=== PATIENT | female | born 1975 | race Caucasian/White ===

== ENCOUNTER → 2022-09-08 11:02 | Outpatient (CLI) | payer BC, SELFPAY ==
--- NOTE | ~2022-09-08 | MM_ITS ---
EXAMINATION: MM screening [facility] BI w [place] HISTORY: Screening mammogram TECHNIQUE: Craniocaudal and mediolateral oblique 3-D tomosynthesis images were obtained and synthetic 2-D images were generated. CAD analysis was submitted and interpreted. COMPARISON: 07/08/2015, 08/19/2009 BREAST PARENCHYMAL COMPOSITION: The breasts are heterogeneously dense, which may obscure small masses . FINDINGS: Scattered benign-appearing calcifications are present. No suspicious mass, calcification, o r architectural distortion are identified in either breast to suggest malignancy. There has been no s uspicious interval change. IMPRESSION: 1. No mammographic evidence of malignancy. 2. Recommend routine screening mammography in one year. BI-RADS Category 2: Benign finding(s). Reviewed, dictated and finalized at location A.
== END ==
PROVIDERS: PCP Physician Assistant; Visit Provider Physician Assistant
DX: Z12.31 Encounter for screening mammogram for malignant neoplasm of breast (principal)
CPT/HCPCS: 77063; 77067

== ENCOUNTER 2024-11-06 07:32 | Outpatient (CLI) | payer BC, SELFPAY ==
--- NOTE | ~2024-11-06 | MM_ITS ---
EXAMINATION: MM screening [facility] w [place] HISTORY: Screening mammogram TECHNIQUE: Craniocaudal and mediolateral oblique 3-D tomosynthesis images were obtained and synthetic 2-D images were generated. CAD analysis was submitted and interpreted. COMPARISON: 09/08/2022 BREAST PARENCHYMAL COMPOSITION:Dense: The breasts are heterogeneously dense, which may obscure small masses. FINDINGS: Partially imaged 9 mm mass present in the upper, far posterior right breast, only seen on M LO view. Stable parenchymal pattern of the left breast. No suspicious metabolic ossifications. IMPRESSION: Partially imaged upper, posterior right breast mass. Spot compression views and exaggerated right CC view recommended for further evaluation, as well as possibly ultrasound. BI-RADS Category 0: Incomplete: Needs additional imaging evaluation. Reviewed, dictated and finalized at location . IMPRESSION: Partially imaged upper, posterior right breast mass. Spot compression views and exaggerated right CC view recommended for further evaluation, as well as possi chaparro ultrasound. BI-RADS Category 0: Incomplete: Needs additional imaging evaluation.
== END 2024-11-06 07:33 | disposition home or self-care (01) ==
LOC: CHSIMG 07:33
PROVIDERS: PCP Physician Assistant; Visit Provider Obstetrics & Gynecology
DX: Z12.31 Encounter for screening mammogram for malignant neoplasm of breast (principal); R92.8 Other abnormal and inconclusive findings on diagnostic imaging of breast
CPT/HCPCS: 77063; 77067

== ENCOUNTER 2024-11-10 10:26 | Outpatient (CLI) | payer BC, SELFPAY ==
--- NOTE | ~2024-11-10 | MMUS_ITS ---
EXAMINATION: MM diagnostic prince RT w [place], US breast RT limited HISTORY: Right breast mass TECHNIQUE: Additional 3-D tomosynthesis images of the right breast were performed and synthetic 2-D i mages were generated. CAD analysis was submitted and interpreted. High resolution limited right breas t ultrasound was performed. COMPARISON: 11/06/2024, 09/08/2022 BREAST PARENCHYMAL COMPOSITION:Dense: The breasts are heterogeneously dense, which may obscure small masses. FINDINGS: MAMMOGRAPHIC FINDINGS: Spot compression views confirm a partially imaged suspected mass in the posterior upper right breast measuring up to 6 mm. This is not as well-seen on the cc view. ULTRASOUND: At the 12:00 position right breast, 5 cm from the nipple, there is an 8 x 6 x 3 mm hypoechoic paralle l circumscribed mass without posterior shadowing. There is also a 1 cm difficult benign-appearing lym ph node at the 9:00 position right breast, 7 cm from the nipple. IMPRESSION: No distinct evidence for malignancy. Probable benign findings of the upper and upper outer right david ast, as detailed above. 6 month follow-up exam advised to assure stability of findings given the subo ptimal visualization mammographically. BI-RADS category 3, probably benign findings. Reviewed, dictated and finalized at location M. IMPRESSION: No distinct evidence for malignancy. Probable benign findings of the upper and upper outer right breast, as detailed above. 6 month follow-up exam advised to assure stability of findings given the suboptimal visualization mammographical ly. BI-RADS category 3, probably benign findings.
--- OUTSIDE RECORDS SUMMARY | 2024-11-10 10:39 | XMS_ITS | Clinical Summary ---
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 Gender Identity Not on file Sexual Orientation Not on file Plan of Treatment Health Maintenance Due Date Last Done Comments Hepatitis C Virus (HCV) Screening 1973 TdaP Immunization 1973 Hepatitis B Immunization (1 of 3 - 19+ 3-dose series) 1992 Pap Smear 1994 Cervical Cancer Screening (CCS) 09/17/2003 HPV/Cotest 09/17/2003 Colonoscopy 2018 Colorectal Cancer Screening 2018 Cologuard 09/17/2023 Immunochemical Fecal Occult Blood 09/17/2023 Mammogram 09/17/2023 Pneumococcal Immunization (5 0+ years) (1 of 1 - PCV) 09/17/2023 Zoster Immunization (1 of 2) 09/17/2023 Influenza Immunization (#1) 2024 SARS-COV-2 Immunization ( - 2023- season) 2024 Respiratory Syncytial Virus (RSV) Immunization (Adult) (1 - 1-dose 75+ series) 2048 Meningococcal Immunization (ACWY) Aged Out No longer eligible based on patient's age to complete this topic Pneumococcal Immunization Combined Aged Out No longer eligible based on patient's age to complete this topic Rotavirus Immunization Aged Out No lo nger eligible based on patient's age to complete this topic
--- OUTSIDE RECORDS SUMMARY | 2024-11-10 10:39 | XMS_ITS | Clinical Summary ---
Author Organization [facility] Address [address] [place] [address] Care Team Providers Care Ambulatory Nurse Name Role Phone Julia Cope Primary Care Provider [phone] Allergies Active Allergy Reactions Criticality Noted Date Comments Clarithromycin Hives 05/22/2016 Medications Cetirizine HCl (ZYRTEC ALLERGY) 10 MG Cap Take 10 mg by mouth daily. 8 Active fluticasone propionate 50 MCG/ACT nasal spray 2 sprays by Nasal route daily. 7 Active aspirin EC 81 MG tablet Take 1 tablet (81 mg total) by mouth daily. 90 tablet 2 Active Additional Information Patient not taking.Reported on 07/06/2024 vitamin D2, ergocalciferol, (DRISDOL) 1.25 mg capsule Take 1 capsule (1.25 mg total) by mouth every 7 days. 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 0 12/17/2023 Ascending aorta dilatation 12/17/2023 Coronary artery calcification 08/24/2021 Hyperlipidemia 07/10/2021 Family History Medical History Relation Comments Heart Disease Mother S/p 4 vessel CAB G Hypertension Mother Pulmonary Fibrosis Mother Stroke Paternal Grandfather Stent Cardiac Paternal Grandmother Relation Status Comments Brother Alive Father Alive Maternal Grandfather (Age 87) Maternal Grandmother (Age 82) Mother Alive Paternal Grandfather (Age 87) Paternal Grandmother (Age 90) Sister Alive Social History Tobacco Use Types Packs/Day Years Used Date Smoking Tobacco: Never Smokeless Tobacco: Never Tobacco Cessation:Counseling Given: Not Answered Alcohol Use Standard Drinks/Week Comments Never 0 (1 standard drink = 0.6 oz pur e alcohol) Comments No Sex and Gender Information Value Date Recorded Sex Assigned at Not on file Legal Sex Female 8:20 PM CDT Gender Identity Not on file Sexual Orientation Straight 06/09/2021 9: 56 AM LIGHTING ENGINEER Occupation Industry Job Start Date Job End Date Teacher Not on file Not on file Not on file Last Filed Vital Signs Vital Sign Reading Time Taken Comments Blood Pressure 112/60 07/06/2024 3:01 PM LIGHTING ENGINEER Pulse 71 07/06/2024 3:01 PM LIGHTING ENGINEER Temperature 36.3 C (97.3 F) 06/05/2021 12:07 PM LIGHTING ENGINEER Respiratory Rate 18 06/05/2021 6:57 PM LIGHTING ENGINEER Oxygen Saturation 96% 07/06/2024 3:01 PM LIGHTING ENGINEER Inhaled Oxygen Concentration - - Weight 77.3 kg (170 lb 6.4 oz) 07/06/2024 3:01 P M LIGHTING ENGINEER Height 162.6 cm (5' 4) 07/06/2024 3:01 PM LIGHTING ENGINEER Body Mass Index 29.25 07/06/2024 3:01 PM LIGHTING ENGINEER Plan of Treatment Upcoming Encounters Date Type Department Care Team (Late st Contact Info) Description 03/15/2025 2:30 PM LIGHTING ENGINEER Office Visit [facility] [place] [address] Hung Gray MD [facility], [address] [place], [place] [id number] Health Maintenance Due Date Last Done Comments ASCVD Statin 1973 Cervical Cancer Screening Pa p Smear (Age 30 to 64) Every 3 Years 1973 Colorectal Cancer Screening Colonoscopy (10 Years) 1973 Annual Physical 1976 Hepatitis C 09/17/1991 DTaP, Tdap and Td Vaccines ( 1 - Tdap) 1992 Hepatitis B Vaccines (1 of 3 - 19+ 3-dose series) 1992 Pneumococcal Vaccine: 50+ Years (1 of 2 - PCV) 1992 Cervical Cancer Screening Pa p with HPV Testing (Age 30 to 64) Every 5 Years 09/17/2003 Cervical Cancer Screening wi th HPV 09/17/2003 Mammogram Screening 2013 Zoster Vaccines (1 of 2) 09/17/2023 COVID-19 Vaccine ( - 2023-2 5 season) 2024 ASCVD LDL 07/23/2024 07/24/2023, 08/24/2021, 06/13/2021 Meningococcal B Vaccine Aged Out No l onger eligible based on patient's age to complete this topic Meningococcal Vaccine Aged Out No ana gee eligible based on patient's age to complete this topic RSV Immunizations Under 20 Months Aged Out No longer eligible b ased on patient's age to complete this topic Procedures Procedure Name Priority Date/Time Associated Diagnosis Comments LIPID PANEL Routine 07/24/2023 from Last 3 Months or Most Recently Relevant to Health Maintenance Results * LIPID PANEL (07/24/2023) CHOLESTEROL 133 HDL 65 TRIGLYCERIDES 70 LDL (CALCULATED) 54 07/24/2023 us Default History Genericprovider LABORATORY Edited Result - Final from Last 3 Months or Most Recently Relevant to Health Maintenance Insurance Care Teams Ambulatory Nurse Relationship Specialty Start Date End Date Julia Cope PA PCP - General PHYSICIAN HOME HEALTH PHYSICAL THERAPIST 06/05/21
--- OUTSIDE RECORDS SUMMARY | 2024-11-10 10:39 | XMS_ITS | Referral Summary ---
Author Organization [address] Address [address] [place] [id number] Care Team Providers Care Cloth Framer Name Role Phone Ying Copevicki POLLOCK Primary Care Pr ovider Encounters Date Type Department Care Team Description 08/17/2024 3:45 PM CDT Office Visit [facility] Sports Medicine and Primary Care at [address] [place] [address] Akbar Gomes DO Adhesive capsulitis of right shoulder (Primary Dx); Chronic right shoulder pain from Last 3 Months Allergies Active Allergy Reactions Criticality Noted Date Comments Clarithromycin Hives Medium 05/22/2016 Medications cetirizine (ZyrTEC) 10 mg tablet Take 1 tablet (10 mg total) by mouth daily Active fluticasone propionate (FLONASE) 50 mcg/actuation nasal spray Administer 1 spray into each nostril daily Active vitamin D3-vitamin K2 25 mcg (1,000 unit)-90 mcg tablet,disintegr ating Take by mouth Active celecoxib (CeleBREX) 200 mg capsuleIndicatio ns:Right shoulder pain, unspecified chronicity Take 1 capsule (200 mg total) by mouth daily for 14 days 14 capsule 4 Active Active Problems Problem Noted Date Diagnosed Date Mass of breast 07/13/2010 Social History Tobacco Use Types Packs/Day Years Used Date Smoking Tobacco: Never Smokeless Tobacco: Never Tobacco Cessation:Counseling Given: Not Answered AUDIT-C Answer Date Recorded Q1: How often do you have a drink containing alcohol? Never 08/17/2024 Q2: How many drinks containi ng alcohol do you have on a typical day when you are drinking? Patient does not drink Q3: How often do you have si x or more drinks on one occasion? 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 Gender Identity Not on file Sexual Orientation Not on file Last Filed Vital Signs Vital Sign Reading Time Taken Comments Blood Pressure 119/79 08/17/2024 4:02 PM CDT Pulse 62 08/17/2024 4:02 PM CDT Temperature - - Respiratory Rate 20 08/17/2024 4:02 PM CDT Oxygen Saturation - - Inhaled Oxygen Concentration - - Weight 78.4 kg (172 lb 12.8 oz) 08/17/2024 4:02 PM CDT Height 162.6 cm (5' 4) 08/17/2024 4:02 PM CDT Body Mass Index 29.66 08/17/2024 4:02 PM CDT Plan of Treatment Not on file Insurance [facility] Care Teams Cloth Framer Relationship Specialty Start Date End Date Julia Cope PA [address] [place] [address] PCP - General Physician Nuclear Test Technician 04/17/24
--- OUTSIDE RECORDS SUMMARY | 2024-11-10 10:39 | XMS_ITS | Encounter Summary ---
Author Organization [facility] Address [facility] [place] [address] Care Team Providers Care Painter Ski Edge Name Role Phone Julia Cope Primary Care Provider [phone] Encounter Details Date Type Department Care Team (Late st Contact Info) Description 09/25/2022 Vormetric Message Enc [facility], [address] [place], [place] [phone] Hung Gray MD [facility], [address] [place], [place] [phone] test result question Social History Tobacco Use Types Packs/Day Years Used Date Smoking Tobacco: Never Smokeless Tobacco: Never Alcohol Use Standard Drinks/Week Comments Never 0 (1 standard drink = 0.6 oz pur e alcohol) Comments No Sex and Gender Information Value Date Recorded Sex Assigned at Not on file Legal Sex Female 8:20 PM CDT Gender Identity Not on file Sexual Orientation Straight 06/09/2021 9: 56 AM DIRECTOR OF LABOR RELATIONS 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 No / Unsure 09/24/2022 6:47 AM CDT documented as of this encounter Progress Notes * Kelly Fenton RN - 09/25/2022 2:12 PM CDT . documented in this encounter Plan of Treatment Upcoming Encounters Date Type Department Care Team (Late st Contact Info) Description 03/15/2025 2:30 PM DIRECTOR OF LABOR RELATIONS Office Visit [facility] [address] [place] [address] Hung Gray MD [facility], [address] [place] [address] documented as of this encounter Visit Diagnoses Not on filedocumented in this encounter Care Teams Painter Ski Edge Relationship Specialty Start Date End Date Julia Cope PA PCP - General PHYSICIAN ORGANIC CHEMISTRY PROFESSOR 06/05/21 documented as of this encounter
--- OUTSIDE RECORDS SUMMARY | 2024-11-10 10:39 | XMS_ITS | Encounter Summary ---
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 No / Unsure 06/12/2021 7:47 AM SOIL FIELD TECHNICIAN documented as of this encounter Plan of Treatment Upcoming Encounters Date Type Department Care Team (Late Contact Info) Description 03/15/2025 2:30 PM SOIL FIELD TECHNICIAN Office Visit [facility] [place] [address] Hung Gray MD Three [facility] [address] [place] [address] documented as of this encounter Procedures Procedure Name Priority Date/Time Associated Diagnosis Comments TSH (OUTSIDE LAB) Routine 07/24/2023 CBC (OUTSIDE LAB) Routine 07/24/2023 LIPID PANEL Routine 07/24/2023 HEMOGLOBIN, GLYCOSYLATED Routine 07/24/2023 THYROXINE, FREE (FT4) Routine 07/24/2023 VITAMIN D, 25 OH Routine 07/24/2023 FOLATE (OUTSIDE LAB) Routine 06/13/2021 CBC (OUTSIDE LAB) Routine 06/13/2021 COMPREHENSIVE METABOLIC PANEL Routine 06/13/2021 LIPID PANEL Routine 06/13/2021 IRON BINDING TEST Routine 06/13/2021 HEMOGLOBIN, GLYCOSYLATED Routine 06/13/2021 THYROXINE, FREE (FT4) Routine 06/13/2021 THYROID STIM HORMONE TSH Routine 06/13/2021 IRON Routine 06/13/2021 FERRITIN Routine 06/13/2021 HEMOGLOBIN, GLYCOSYLATED Routine 06/05/2021 COMPREHENSIVE METABOLIC PANEL Routine 06/05/2021 LIPID PANEL Routine 06/05/2021 CBC, MANUAL DIFF Routine 06/05/2021 THYROXINE, FREE (FT4) Routine 06/05/2021 THYROID STIM HORMONE TSH Routine 06/05/2021 documented in this encounter Results * TSH (OUTSIDE LAB) (07/24/2023) Pathologist [facility] TSH 0.809 07/24/2023 us Default History Genericprovider LAB-OUTSIDE/ABST RACTED Edited Result - Final * THYROXINE, FREE (FT4) (07/24/2023) Pathologist [facility] FREE T4 1.19 07/24/2023 us Default History Genericprovider LABORATORY Edited Result - Final * CBC (OUTSIDE LAB) (07/24/2023) Pathologist [facility] WBC 6.1 HGB 11.9 HCT 35.6 PLT 226 07/24/2023 us Default History Genericprovider LAB-OUTSIDE/ABST RACTED Edited Result - Final * LIPID PANEL (07/24/2023) Pathologist [facility] CHOLESTEROL 133 HDL 65 TRIGLYCERIDES 70 LDL (CALCULATED) 54 07/24/2023 us Default History Genericprovider LABORATORY Edited Result - Final * HEMOGLOBIN, GLYCOSYLATED (07/24/2023) Pathologist [facility] HGB A1C 5.5 % 07/24/2023 us Default History Genericprovider LABORATORY Edited Result - Final * VITAMIN D, 25 OH (07/24/2023) Pathologist [facility] VITAMIN D 25 HYDROXY S/P/B 20.6 07/24/2023 us Default History Genericprovider LABORATORY Edited Result - Final * FOLATE (OUTSIDE LAB) (06/13/2021) FOLATE 11.1 06/13/2021 us Doc [facility] Abstract LAB-OUTSIDE/ABSTRACTED Final Result * HEMOGLOBIN, GLYCOSYLATED (06/13/2021) Pathologist [facility] HGB A1C 5.4 % 06/13/2021 us Doc [facility] Abstract LABORATORY Final Result * LIPID PANEL (06/13/2021) Pathologist [facility] CHOLESTEROL 158 HDL 33.5 TRIGLYCERIDES 51 NON HDL CHOLESTEROL 96 LDL (CALCULATED) 85 LDL-P (LDL PARTICLE NUMBER) CONVERSION 865 <1,000 HDL-P 33.5 >=30.5 SMALL LDL-P 166 <=527 LDL SIZE 21.2 >20.5 LP-IR SCORE <25 <=45 06/13/2021 us Doc [facility] Abstract LABORATORY Edited Resul t - Final * (ABNORMAL) COMPREHENSIVE METABOLIC PANEL (06/13/2021) Pathologist [facility] SODIUM S/P/B 140 POTASSIUM S/P/B 4.1 CO2 21 CHLORIDE S/P/B 105 GLUCOSE 85 mg/dL CALCIUM S/P/B 8.9 BUN 12 CREATININE S/P/B 0.76 0.5 - 1.0 EGFR AFR. AMER. 108(A) <=90 EGFR NON-AFR. AMER. 94(A) <=90 ALKALINE PHOSPHATASE S/P/B 67 ALT 5 AST 14 BILIRUBIN TOTAL S/P/B 0.6 ALBUMIN S/P/B 4.0 3.5 - 5.0 TOTAL PROTEIN S/P/B 6.4 GGT 7 PHOSPHORUS 2.5 06/13/2021 us Doc [facility] Abstract LABORATORY Final Result * CBC (OUTSIDE LAB) (06/13/2021) [facility] WBC 5.2 HGB 12.3 HCT 36.5 06/13/2021 us Doc [facility] Abstract LAB-OUTSIDE/ABSTRACTED Final Result * THYROXINE, FREE (FT4) (06/13/2021) [facility] FREE T4 1.37 0.82 - 1.77 06/13/2021 us Doc [facility] LABORATORY Final Result * THYROID STIM HORMONE, TSH (06/13/2021) [facility] TSH 1.290 06/13/2021 us Doc [facility] LABORATORY Final Result * FERRITIN (06/13/2021) [facility] FERRITIN 17 15 - 150 06/13/2021 us Doc [facility] LABORATORY Final Result * IRON BINDING TEST (06/13/2021) [facility] IRON BINDING CAPACITY 271 250 - 450 06/13/2021 us Doc [facility] LABORATORY Final Result * IRON (06/13/2021) [facility] IRON 117 27 - 159 06/13/2021 us Doc [facility] LABORATORY Final Result * COMPREHENSIVE METABOLIC PANEL (06/05/2021) [facility] SODIUM S/P/B Comment:error,deleted Narrative Resulting Agency Comment Default History Genericprovider LABORATORY Edited Result - Final * LIPID PANEL (06/05/2021) [facility] CHOLESTEROL Comment:error,deleted Narrative Resulting Agency Comment us Default History Genericprovider LABORATORY Edited Result - Final * CBC, MANUAL DIFF (06/05/2021) WBC Comment:error,deleted Narrative Resulting Agency Comment us Default History Genericprovider LABORATORY Edited Result - Final * THYROXINE, FREE (FT4) (06/05/2021) FREE T4 Comment:error,deleted Narrative Resulting Agency Comment us Default History Genericprovider LABORATORY Edited Result - Final * HEMOGLOBIN, GLYCOSYLATED (06/05/2021) HGB A1C Comment:error,deleted Narrative Resulting Agency Comment us Default History Genericprovider LABORATORY Edited Result - Final * THYROID STIM HORMONE, TSH (06/05/2021) TSH Comment:error,deleted Narrative Resulting Agency Comment us Default History Genericprovider LABORATORY Edited Result - Final documented in this encounter Visit Diagnoses Not on filedocumented in this encounter Care Teams Health Services Rn Relationship Specialty Start Date End Date Julia Cope PA PCP - General PHYSICIAN RETOUCHER 06/05/21 documented as of this encounter
--- OUTSIDE RECORDS SUMMARY | 2024-11-10 10:39 | XMS_ITS | Encounter Summary ---
Author Organization [facility] Address [facility] [place] [address] Care Team Providers Care Home Lighting Adviser Name Role Phone Julia Cope Primary Care Provider [phone] Encounter Details Date Type Department Care Team (Late st Contact Info) Description 06/13/2021 Workfolio Message Enc [place] [facility] THREE [facility], [address] [place] [address] Hung Gray MD [facility] [address] [place] [address] Taking Lipitor without cholesterol numbers noted? 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 No / Unsure 06/12/2021 7:47 AM DIGITAL PROJECT MANAGER documented as of this encounter Progress Notes * Chiqui Rushing RN - 06/13/2021 8:58 AM CST Called patient and answered these questions based on office note from yesterday. Patient voiced understanding and has no further questions TAL PROJECT MANAGER documented in this encounter Plan of Treatment Upcoming Encounters Date Type Department Care Team (Late st Contact Info) Description 03/15/2025 2:30 PM DIGITAL PROJECT MANAGER Office Visit [facility] [address] [place] [address] Hung Gray MD [facility], [address] [place] [address] documented as of this encounter Visit Diagnoses Not on filedocumented in this encounter Care Teams Home Lighting Adviser Relationship Specialty Start Date End Date Julia Cope PA PCP - General PHYSICIAN SEMICONDUCTOR WAFERS TESTER 06/05/21 documented as of this encounter
--- OUTSIDE RECORDS SUMMARY | 2024-11-10 10:39 | XMS_ITS | Data Portability ---
Author Organization [facility] Address [address] [place] [address] Care Team Providers Care Census Enumerator Name Role Phone JULIA HUTCHINS Primary Care Provider [phone] Assessment Encounter Date Assessment Date Assessment LastModified by Organization Details LastModified Time 12/16/2023 12/16/2023 Cologuard 2022 all negative. mammogram due this summer, has order eye exam : overdue dental exam: UTD Not available 12/16/2023 15:39:27 Plan of Treatment Reminders Order Date Submit Date Provider Last Modified By Organization Details Last Modified Time Details Appointments ANNUAL 30 2024 03:30P PHILL Hahn Not available Not available Not available Lab None recorded. Referral orthopedi c surgeon referral 2023 024 [facility], [address], [address], [place], [address], 09/17/2024 15:24:45 Procedures diagnosti c colonosco py (PROC) 2023 024 [facility], [address], [place], [address], 05/11/2024 12:46:28 Surgeries None recorded. Imaging XR, shoulder, 2 or more view 2023 024 [email or web address] [facility], [address], [place], [address], 11/05/2024 13:00:00 Medication Orders Zithromax Z-Ronaldo 250 mg tablet 2024 025 [facility] #[id number], [address], [id number], 06/10/2024 12:28:17 prednison e 20 mg tablet 2024 025 [facility] #[id number], [address], [id number], 06/10/2024 12:28:24 ergocalci ferol (vitamin D2) 1,250 mcg (50,000 unit) capsule 2023 024 [email or web address] #69505, [address], [id number], 06/10/2024 12:11:44 Medrol (Ronaldo) 4 mg tablets in a dose pack 2023 024 [facility] #[id number], [address], [id number], 04/16/2024 10:11:12 Patient TargetsNo targets recorded. Patient Instructions Encounter Date Encounter Id Patient Instructions Last Modified By Organization Details Last Modified Time 12/16/2023 [id number] biceps tendinitis: exercises Not available 12/16/2023 15:55:31 rotator cuff: exercises Not available 12/16/2023 15:55:31 06/10/2024 [id number] A healthy lifestyle: care instructions Not available 06/10/2024 12:28:12 Reason for Referral Orthopedic Surgeon Referral for Pain of right shoulder joint Referring Physician: Julia Hutchins, Internal Medicine, Encounter Date: 04/17/2024 Results Created Date Observation Date Name Description Value Unit Range Abnormal Flag Note LastModifiedBy Organization Detail LastModifiedTime 12/10/19 24 11/26/2023 home sleep study No observ ation record ed. [facility] [address], [place], [address], 12/10/2023 22:44:33 11/07/19 25 11/06/2024 ROBLuana berny guerrero, digit al, bilat eral No observ ation record ed. [facility] [address] [place], [address], 11/06/2024 13:51:13 Result Notes None recorded. Problems Name Problem SNOMED Code Status Onset Date Resolution Date Notes Provider Name and Address Organization Details Recorded Time Positive screening for depression on PHQ-9 (Patient Health Questionnai re 9) 0581026378298 00 Active 2023 PHILL Bolaños Attn: Hero g,[address] [place], [address], [place] - [facility] 4 11:18:15 Long-term drug therapy Active 2023 PHILL Bolaños Attn: Accountgloria g,[address] [place], [address], [place] [facility] 4 11:18:16 Aneurysm of ascending aorta 536266319 Active 2023 PHILL Bolaños Attn: Accountin g,[address] [place], [address], [place] [facility] 4 11:19:14 Coronary atheroscler osis 304536156 Active 2023 PHILL Bolaños Attn: Accountin g,[address] [place], [address], [place] [facility] 4 11:19:27 Vitamin D deficiency 55679545 Active 2023 PHILL Bolaños Attn: Jeffersonin g,[address] [place], [address], [place] [facility] 4 11:19:35 Body mass index 25-29 - overweight 248964370 Active 2023 Barbra Carroll null, [place] [facility] 10:12:28 Overweight 365111964 Active 2024 PHILL Bolaños Attn: Hero sotelo,[address] [facility], [place], [address], [place] [facility] 12:33:44 Problem Notes None recorded. Procedures Surgical History Date Name Laterality Status Provider Name and Address Organization Details Recorded Time 05/13/19 09 section completed Silvina Solitario [place] [facility] 12/16/2023 16:55:31 05/13/19 07 hernia repair completed Silvina Solitario [place] [facility] 12/16/2023 16:55:02 05/13/19 06 section completed Silvina Solitario [place] [facility] 12/16/2023 16:55:28 05/13/19 05 section completed Silvina Solitario [place] [facility] 12/16/2023 16:55:24 05/13/19 00 Cholecystectomy completed Silvina Sol[place]ario [place] [facility] 12/16/2023 16:55:12 05/13/19 00 section completed Silvina Soliatrio [place] [facility] 12/16/2023 16:55:21 05/13/18 98 Knee Surgery completed Silvina Sol[place]ario [place] [facility] 12/16/2023 16:55:49 05/13/18 80 hernia repair completed Silvina Sol[place]ario [place] [facility] 12/16/2023 16:54:58 Imaging Results None recorded. Procedure Notes None recorded. Medical Equipment None Reported. Allergies Allergen ID Allergen Name Allergen Category Reaction Reaction Severity Criticality Documentation Date Start Date Code Code System Note Provider Name and Address Organization Details Recorded Time 753190 Biaxin medicatio n hives mild low 12/16/2023 9 RxNorm SAM [place], [place] - [facility] 15:25:05 Medications Name Sig Start Date Stop Date Status Note LastModified by Organization Details LastModified Time celecoxib 200 mg capsule 06/10 completed Not Available Not Available Not Available doxycycli ne hyclate 100 mg capsule TAKE ONE CAPSULE BY MOUTH TWICE DAILY WITH MEALS active Not Available Not Available No t Available atorvasta tin 10 mg tablet Take 1 tablet every day by oral route for 90 days. 04/17 completed Not taking anymore Not Available Not Available Not Available azithromy tennille 250 mg tablet TAKE 2 TABLETS (500 MG) BY ORAL ROUTE ONCE DAILY FOR 1 DAY THEN 1 TABLET (250 MG) BY ORAL ROUTE ONCE DAILY FOR 4 DAYS active Not Available Not Available No t Available metoprolo l tartrate 100 mg tablet TAKE 1 TABLET BY MOUTH ONE HOUR PRIOR TO CORONARY CTA 04/17 completed Patient is no longer taking this medicati on anymore it was a 1 time thing before a test Not Available Not Available Not Available prednison e 20 mg tablet TAKE 2 TABLETS BY MOUTH EVERY DAY FOR 5 DAYS active Not Available Not Available No t Available amoxicill in 875 mg tablet Take 1 tablet every 12 hours by oral route. 06/10 completed Not Available Not Available Not Available ergocalci ferol (vitamin D2) 1,250 mcg (50,000 unit) capsule Take 1 capsule every week by oral route for 84 days. active Not Available Not Available No t Available methylpre dnisolone 4 mg tablets in a dose pack FOLLOW PACKAGE DIRECTIO NS 04/16 completed Not Available Not Available Not Available ondansetr on 4 mg disintegr ating tablet 06/10 completed Not Available Not Available Not Available aspirin active Not Available Not Avail able Not Available Zyrtec one daily active Not Available Not Available No t Available Flonase Allergy Relief 50 mcg/actua tion nasal spray,[employer] [place] 1 spray every day by intranas al route. active Not Available Not Available No t Available Vitals Date Recorded Body height Body mass index (BMI) Body weight Respiratory rate Oxygen saturation Oxygen saturation in Arterial blood by Pulse oximetry Heart rate Systolic blood pressure Diastolic blood pressure Provider Name and Address Organization Details Last Updated DateTime 5 162.56 cm 28.8 kg/m2 52710.5 2 g 20 /min 99 % 99 % 72 /min 122 mm[Hg] 82 mm[Hg] Laci Encinas [place] - [facility] 5 12:14:42 Date Recorded Systolic blood pressure Diastolic blood pressure Provider Name and Address Organization Details Last Updated DateTime 12/16/2023 124 mm[Hg] 70 mm[Hg] PHILL Bolaños Attn: Accounting, [place], [address], [facility] 12/16/2023 15:49:24 Date Recorded Body weight Body mass index (BMI) Body height Heart rate Oxygen saturation Oxygen saturation in Arterial blood by Pulse oximetry Systolic blood pressure Diastolic blood pressure Provider Name and Address Organization Details Last Updated DateTime 4 36739.9 8 g 29.1 kg/m2 162.56 cm 77 /min 98 % 98 % 110 mm[Hg] 68 mm[Hg] Silvina Solitario MA [facility] 4 15:26:51 Date Recorded Respiratory rate Provider Name a nd Address Organization Details Last Updated DateTime 04/17/2024 20 /min PHILL Bolaños Attn: Accounting,[address] [place], [address], [facility] 04/17/2024 09:09:33 Date Recorded Body height Provider Name an d Address Organization Details Last Updated DateTime 04/17/2024 162.56 cm Barbra Carroll [facility] 04/17/20 24 08:49:22 Date Recorded Body mass index (BMI) Body weight Heart rate Oxygen saturation Oxygen saturation in Arterial blood by Pulse oximetry Systolic blood pressure Diastolic blood pressure Provider Name and Address Organization Details Last Updated DateTime 28.7 kg/m2 06171.6 4 g 62 /min 99 % 99 % 128 mm[Hg] 64 mm[Hg] Silvina Solitario MA [facility] 08:57:53 Social History Question Answer Notes LastModified by Organizat ion Details LastModified Time Tobacco Smoking Status Never Smoker Silvina Solitario MA null, [facility] 12/16/2023 16:54:08 Do You Have An Advance Directive? No Information n ot available 04/17/2024 Are You Blind Or Do You Have Difficulty Seeing? No Information n ot available 12/16/2023 What Is Your Level Of Caffeine Consumption? Occasional Information not available 12/16/2023 In The 14 Days Before Symptom Onset, Have You Had Close Contact With A Laboratory-confirm ed COVID-19 While That Case Was Ill? No Information n ot available 12/16/2023 In The 14 Days Before Symptom Onset, Have You Had Close Contact With A Person Who Is Under Investigation For COVID-19 While That Person Was Ill? No Information not available 12/16/2023 Have You Been To An Area Known To Be High Risk For COVID-19? No Information not available 12/16/2023 Are You Deaf Or Do You Have Serious Difficulty Hearing? No Information not available 12/16/2023 What Type Of Diet Are You Following? REGULAR Information n ot available 12/16/2023 Are There Any Guns Present In Your Home? No Information not available 12/16/2023 What Was The Date Of Your Most Recent Tobacco Screening? 06/10/2024 [email or web address] Information not available 06/10/2024 What Is Your Relationship Status? Information not available 04/17/2024 Do You Use Your Seat Belt Or Car Seat Routinely? Yes Information not available 12/16/2023 Do You Have Smoke And Carbon Monoxide Detectors In Your Home? Yes Information not available 12/16/2023 Do You Use Sunscreen Routinely? Yes Information not available 12/16/2023 Has Tobacco Cessation Counseling Been Provided? No Information not available 12/16/2023 Sex: Female Functional Status Question Answer Note LastModified by Organizat ion Details LastModified Time Do you use any illicit or recreational drugs? No Information not available 12/16/2023 Do you or have you ever used any other forms of tobacco or nicotine? No Information not available 12/16/2023 What is your level of alcohol consumption? None Information not available 12/16/2023 Are you currently employed? Yes Information not available 12/16/2023 Are you able to care for yourself? Yes Information not available 12/16/2023 What is your exercise level? None Information not available 12/16/2023 Mental Status Question Answer Note LastModified by Organization D etails LastModified Time Do you feel stressed (tense, restless, nervous, or anxious, or unable to sleep at night)? [id number] Information not available 12/16/2023 Family History Relationship Description Onset Age of this Age Resolved Age Notes LastModified by Organization Details LastModified Time Mother Coronary arterioscler osis mebyma Not available 2023 16:53:23 Mother Diabetes mellitus mebyma Not available 2023 16:53:30 Mother Heart disease mebyma Not available 2023 16:53:37 Mother Hypertensive disorder mebyma Not available 2023 16:53:43 Mother Migraine mebyma Not available 0 12/16/2023 16:53:49 Mother Blood coagulation disorder on new years tcarterma Not available 06/10/2024 12:12:19 Medical History Condition Response Allergies Y Gynecological HistoryNo gynecological history recorded. Obstetrics History GPAL:G 0 P 0 0 0 0 Past Encounters Encounter ID Performer Location Encounter Start Date Encounter Closed Date Diagnosis/Indication Diagnosis SNOMED-CT Code Diagnosis ICD10 Code Diagnosis Note [id number] Akbar Boston MD [facility] [address] [place] [id number] 12/16/2023 15:15:01 12/16/2023 16:25:36 Adult health examination 329581238 Z00.01 Annual wellness exam complete Vitamin D deficiency 347 91820 E55.9 Refill on vitamin-D 44196 unit capsule once daily per week for underlying deficiency Coronary atherosclerosis 410052164 I25.10 Patient has mild underlying coronary artery disease and is taking atorvastat in 10 mg daily. All of her labs are up-to-date from cardiologi which she follows with routinely. Aneurysm o f ascending aorta 331815350 I71.21 Patient is being followed by Cardiology and is stable with small aneurysm of ascending aorta Long-term drug therapy 767587938 Z79.899 Patient is up-to-date on labs from her specialist Pain of ri ght shoulder joint 0522405297 9974996 M25.511 Start Medrol Dosepak and home exercises for biceps and rotator cuff tendonitis have been given to complete Positive s creening for depression on PHQ-9 (Patient Health Questionnaire 9) 9475308657 10198 Z13.31 Patient scored a 6 on screening today but is stable with no additional needs at this time [id number] Akbar Boston MD [facility] [employer] [address] [place] [address] 04/17/2024 08:47:52 04/17/2024 09:29:33 Body mass index 25-29 - overweight 731272338 Z68.28 bmi 28.7 Pain of ri ght shoulder joint 2191577813 4154892 M25.511 check xray right shoulder and refer to ortho. duration of symptoms is chronic at this point and requires in depth evaluation . Altered mateo wel function 36294652 R19.4 pt reports bowels are no evacuating completely ; shape and consistenc y are very different, takes a long time to wipe and clean herself and she never feels a satisfacto ry BM. no melena or blood seen but irregular bowels and caliber change, diagnostic colonoscop y will be pursued . [id number] Akbar Boston MD [facility] [employer] [address] [place] [address] 06/10/2024 12:04:21 06/10/2024 12:55:53 Body mass index 25-29 - overweight 193477483 Z68.28 bmi 28.7 Overweight 737822543 E66 .3 Sore throat 754090338 J0 2.9 start zpack therapy and prednisone 40mg daily x 5 days. Health Concerns Section Related Observation LastModified by Organization Detai ls LastModified Time None Recorded Concern Status LastModified by Organization Details LastModified Time None Recorded Advance Directives Directive N: Payers Insurance Date Sequence Insurance Name Policy Number Policy Angel Covered Member ID Angel Member ID Guarantor Name 06/09/2024 1 [facility] [id number] Demetria Ornelas [id number] Demetria Ornelas Notes Date Note Type Note Provider Name and Address Organization Details Recorded Time 12/16/2023 text/html Patient has a hi story of Cardiology followed mild coronary artery disease and mild aortic aneurysm. on empiric statin therapy. follows with teacher of the deaf routinely for this . Non-surgical options at this time. recent sleep study showed no PRACHI but bradycardia. Has sleep issues, cannot stay asleep , wakes often and goes back to sleep. PHILL Bolaños Attn: Accounting,[address] [place], [address], [facility] 01/11/2024 11:20:03 04/17/2024 text/html ShoulderReported bypatient.Hand Dominance:right Location:right Quality:aching; sharp; dull; deep; constant; worsening Severity:moderate Duration:years Timing:gradual; recurrent Context:cannot identify Alleviating Factors:nothing helps Aggravating Factors:lifting; carrying; twisting; pushing/pulling; throwing Associated Symptoms:no weakness; no numbness; no popping/clicking Previous Surgery:none Prior Imaging:none Previous Injections:none Previous PT:none Unsatisfactory bowel movements; just never feels like she evacuates completely, takes a long time to wipe. no constipation or diarrhea but just never fully emptying. x 1 year but the last 6 months have been really irregular. PHILL Bolaños Attn: Accounting,[address] [place], [address], [facility] 05/07/2024 23:55:14 06/10/2024 text/html EaracheReported bypatient.Location:lef t;pain inside ear;pain anterior to ear;pain below ear Quality:aching Severity:continuous Duration:symptoms lasting over 2 weeks Context:no sick contacts; not grinding teeth Modifying Factors:OTC medication Associated Symptoms:no discharge from the ears; no hearing loss; no popping noise in the ears; no ringing in the ears;nose/sinus problems PHILL Bolaños Attn: Accounting,[address] [place], [address], [facility] 06/10/2024 12:33:59 OBGyn Episode No OBEpisode recorded.
--- OUTSIDE RECORDS SUMMARY | 2024-11-10 10:39 | XMS_ITS | Data Portability ---
Author Organization [place] - [facility] [employer] [facility], Main Office Address [address] [place] [address] Assessment Encounter Date Assessment Date Assessment LastModified by Organization Details LastModified Time 12/31/2022 12/31/2022 cologuard negative 2021 mammogram august 2022 [email or web address] Not available 12/31/2022 18:07:46 Plan of Treatment Reminders Order Date Submit Date Provider Last Modified By Organization Details Last Modified Time Details Appointments None recorded. Lab vitamin D, 25-hydrox y, total, serum 023 024 [facility], 2022 Roberto Nieves, [address], [place], [address], 4 18:11:58 CMP, serum or plasma 023 024 [facility], 2022 Roberto Nieves, [address], [place], [address], 4 18:11:58 CBC w/ auto diff 023 024 [email or web address] [facility], 2022 Roberto Nieves, [address], [place], [address], 4 18:11:58 TSH + free T4, serum 023 024 [email or web address] [facility], 2022 Roberto Nieves, [address], [place], [address], 4 18:11:58 vitamin B12 + folate, serum or blood 023 024 [email or web address] [facility], 2022 Roberto Nieves, [address], [place], [address], 4 18:11:58 HbA1c (hemoglob in A1c), blood 023 024 [email or web address] [facility], 2022 Roberto Nieves, [address], [place], [address], 4 18:11:58 lipid panel, serum 023 024 [email or web address] [facility], 2022 Roberto Nieves, [address], [place], [address], 4 18:11:58 Referral None recorded. Procedures None recorded. Surgeries None recorded. Imaging None recorded. Medication Orders None recorded. Patient TargetsNo targets recorded. Patient InstructionsNo instructions recorded. Reason for Referral None Reported. Results Created Date Observation Date Name Description Value Unit Range Abnormal Flag Note LastModifiedBy Organization Detail LastModifiedTime 06/13/19 22 06/14/2021 VITAM IN B12 AND FOLAT E vitamin B12 230 pg/mL 232-12 45 below low normal Not Available [facility] ([facility]) [address], [place], [address], 06/20/2021 20:08:49 06/13/19 22 06/14/2021 VITAM IN B12 AND FOLAT E folate (folic acid), serum 11.1 NG/mL >3.0 A serum folat e soniya ntrat ion of less than 3.1 ng/mL is consi dered to repre sent clini thuy defic iency . Not Available [facility] ([facility]) [address], [place], [address], 06/20/2021 20:08:49 06/13/19 22 06/20/2021 A1C W/GLY COMAR K(R) REFLE X Hb A1C diabetic assessment 5.4 %Hb Note: A refle x test was order ed on this speci men. If A1c resul ts are betwe en a value of 6.0 to 8.0 (incl uding 6.0 and 8.0), Glyco Daniel testi ng is perfo rmed. Glyco Daniel refle cts post prand ial gluco se spike s from the past 2 weeks , where as A1c refle cts avera ge glyce jericho contr ol over the past 3 month s. Refer ence Range : Susan l: <5.7 Incre ased risk for diabe mary jo: 5.7 - 6.4 Ongoi ng Hyper glyce jessie: >6.4 Glyce jericho contr ol for adult s with diabe mary jo: <7.0 (ADA) Not Available [facility] [address] [facility] [address], [place], [address], 06/20/2021 20:08:49 06/13/19 22 06/20/2021 A1C W/GLY COMAR K(R) REFLE X estimated average glucose 108 mg/dL Not Available [facility] [address] [facility] [address], [place], [address], 06/20/2021 20:08:49 06/13/19 22 06/20/2021 A1C W/GLY COMAR K(R) REFLE X glycomark(R) (1,5 Ag) tnp ug/mL Testi ng Not Indic ated Refle x not perfo rmed Glyco Daniel( TM) is inten ded for use with manag ing glyce jericho contr ol in diabe tic patie nts. A low resul t corre spond s to high gluco se peaks . 1, 5-AG blood level s can be affec timoteo by clini thuy condi tions or medic ation s. Pleas e refer to the direc tory of servi brenden or [facility] websi te test menu for detai led list of limit ation s. Not Available [facility] [address] [facility] [address], [place], [address], 06/20/2021 20:08:49 06/13/19 22 06/14/2021 LIPID CASCA DE HDL cholesterol 62 mg/dL >39 Not Available [facility] ([facility]) [address], [place], [address], 06/20/2021 20:08:49 06/13/19 22 06/14/2021 LIPID CASCA DE LDL/HDL ratio 1.4 ratio 0.0-3. 2 LDL/H DL Ratio Men Women 1/2 Avg.R isk 1.0 1.5 Avg.R isk 3.6 3.2 2X Avg.R isk 6.2 5.0 3X Avg.R isk 8.0 6.1 Not Available [facility] ([facility]) [address] [place], [address], 06/20/2021 20:08:49 06/13/19 22 06/14/2021 LIPID CASCA DE non-HDL cholesterol 96 mg/dL 0-129 Not Available [facility] ([facility]) [address] [place], [address], 06/20/2021 20:08:49 06/13/19 22 06/14/2021 LIPID CASCA DE triglyceride s 51 mg/dL 0-149 Not Available [facility] ([facility]) [address] [place], [address], 06/20/2021 20:08:49 06/13/19 22 06/14/2021 LIPID CASCA DE LDL chol calc ([facility]) 85 mg/dL 0-99 Not Available [facility] ([facility]) [address] [place], [address], 06/20/2021 20:08:49 06/13/19 22 06/14/2021 LIPID CASCA DE LDL-P 865 nmol/ L <1000 Low < 1000 Moder ate 1000 - 1299 Borde rline -High 1300 - 1599 High 1600 - 2000 Very High > 2000 Not Available [facility] ([facility]) [address] [place], [address], 06/20/2021 20:08:49 06/13/19 22 06/14/2021 LIPID CASCA DE HDL-P (total) 33.5 umol/ L >=30.5 Not Available [facility] ([facility]) [address] [place], [address], 06/20/2021 20:08:49 06/13/19 22 06/14/2021 LIPID CASCA DE small LDL-P 166 nmol/ L <=527 Not Available [facility] ([facility]) [address] [facility], [place], [address], 06/20/2021 20:08:49 06/13/19 22 06/14/2021 LIPID CASCA DE LDL size 21.2 nm >20.5 ----- ----- ----- ----- ----- ----- ----- ----- ----- ----- ----- --- INTER PRETA TIVE INFOR ELISSA N PARTI DEBORA SONIYA NTRAT ION AND SIZE <--Lo wer CVD Risk Highe r CVD Risk- -> LDL AND HDL PARTI CLES Perce ntile in Refer ence Popul ation HDL-P (tota l) High 75th 50th 25th Low >34.9 34.9 30.5 26.7 <26.7 Small LDL-P Low 25th 50th 75th High <117 117 527 839 >839 LDL Size <-Lar ge (Keyana blane A)-> <-Sma ll (Keyana blane B)-> 23.0 20.6 20.5 19.0 ----- ----- ----- ----- ----- ----- ----- ----- ----- ----- ----- --- Small LDL-P and LDL Size are assoc iated with CVD risk, but not after LDL-P is taken into accou nt. Not Available [facility] ([facility]) [address], [place], [address], 06/20/2021 20:08:49 06/13/19 22 06/14/2021 LIPID CASCA DE LP-IR score <25 <=45 INSUL IN RESIS TANCE MARKE R <--In sulin Sensi tive Insul in Resis tant- -> Perce ntile in Refer ence Popul ation Insul in Resis tance Score LP-IR Score Low 25th 50th 75th High <27 27 45 63 >63 LP-IR Score is inacc urate if patie nt is non-f astin g. The LP-IR score is a labor atory devel oped index that has been assoc iated with insul in resis tance and diabe mary jo risk and shoul d be used as one compo nent of a physi vaughn' s clini thuy asses sment . Not Available [facility] ([facility]) [address] [place], [address], 06/20/2021 20:08:49 06/13/19 22 06/14/2021 LIPID CASCA DE comment: nonprofit director Not Available [facility] ([facility]) [address] [place], [address], 06/20/2021 20:08:49 06/13/19 22 06/14/2021 CMP14 +4AC glucose 85 mg/dL 65-99 Not Available [facility] ([facility]) [address] [place], [address], 06/20/2021 20:08:48 06/13/19 22 06/14/2021 CMP14 +4AC BUN 12 mg/dL 6-24 Not Available [facility] ([facility]) [address] [place], [address], 06/20/2021 20:08:48 06/13/19 22 06/14/2021 CMP14 +4AC creatinine 0.76 mg/dL 0.57-1 .00 Not Available [facility] ([facility]) [address] [place], [address], 06/20/2021 20:08:48 06/13/19 22 06/14/2021 CMP14 +4AC eGFR if nonafricn AM 94 mL/mi n/1.7 3 >59 Not Available [facility] ([facility]) [address] [place], [address], 06/20/2021 20:08:48 06/13/19 22 06/14/2021 CMP14 +4AC eGFR if africn AM 108 mL/mi n/1.7 3 >59 In accor dance with recom menda tions from the NKF-A SN Task force , [facility] is in the proce ss of updat ing its eGFR calcu latio n to the 2020 CKD-E PI creat inine equat ion that estim ates kidne y funct ion witho ut a race varia ble. Not Available [facility] ([facility]) [address] [facility], [place], [address], 06/20/2021 20:08:48 06/13/19 22 06/14/2021 CMP14 +4AC sodium 140 mmol/ L 134-14 4 Not Available [facility] ([facility]) [address] [place], [address], 06/20/2021 20:08:48 06/13/19 22 06/14/2021 CMP14 +4AC potassium 4.1 mmol/ L 3.5-5. 2 Not Available [facility] ([facility]) [address] [place], [address], 06/20/2021 20:08:48 06/13/19 22 06/14/2021 CMP14 +4AC chloride 105 mmol/ L 96-106 Not Available [facility] ([facility]) [address] [place], [address], 06/20/2021 20:08:48 06/13/19 22 06/14/2021 CMP14 +4AC carbon dioxide, total 21 mmol/ L 20-29 Not Available [facility] ([facility]) [address] [place], [address], 06/20/2021 20:08:48 06/13/19 22 06/14/2021 CMP14 +4AC calcium 8.9 mg/dL 8.7-10 .2 Not Available [facility] ([facility]) [address] [facility] [place], [address], 06/20/2021 20:08:48 06/13/19 22 06/14/2021 CMP14 +4AC phosphorus 2.5 mg/dL 3.0-4. 3 below low normal Not Available [facility] ([facility]) [address] [facility] [place], [address], 06/20/2021 20:08:48 06/13/19 22 06/14/2021 CMP14 +4AC protein, total 6.4 g/dL 6.0-8. 5 Not Available [facility] ([facility]) [address] [facility] [place], [address], 06/20/2021 20:08:48 06/13/19 22 06/14/2021 CMP14 +4AC albumin 4.0 g/dL 3.8-4. 8 Not Available [facility] ([facility]) [address] [facility] [place], [address], 06/20/2021 20:08:48 06/13/19 22 06/14/2021 CMP14 +4AC bilirubin, total 0.6 mg/dL 0.0-1. 2 Not Available [facility] ([facility]) [address] [facility] [place], [address], 06/20/2021 20:08:48 06/13/19 22 06/14/2021 CMP14 +4AC alkaline phosphatase 67 IU/L 44-121 Not Available [facility] ([facility]) [address] [facility] [place], [address], 06/20/2021 20:08:48 06/13/19 22 06/14/2021 CMP14 +4AC LDH 138 IU/L 119-22 6 Not Available [facility] ([facility]) [address] [place], [address], 06/20/2021 20:08:48 06/13/19 22 06/14/2021 CMP14 +4AC AST (SGOT) 14 IU/L 0-40 Not Available [facility] ([facility]) [address] [place], [address], 06/20/2021 20:08:48 06/13/19 22 06/14/2021 CMP14 +4AC ALT (SGPT) 5 IU/L 0-32 Not Available [facility] ([facility]) [address] [facility], [place], [address], 06/20/2021 20:08:48 06/13/19 22 06/14/2021 CMP14 +4AC GGT 7 IU/L 0-60 Not Available [facility] ([facility]) [address] [place], [address], 06/20/2021 20:08:48 06/13/19 22 06/14/2021 CMP14 +4AC cholesterol, total 158 mg/dL 100-19 9 Not Available [facility] ([facility]) [address] [place], [address], 06/20/2021 20:08:48 06/13/19 22 06/14/2021 CBC/D IFF AMBIG UOUS DEFAU LT WBC 5.2 x10e3 /uL 3.4-10 .8 Not Available [facility] ([facility]) [address] [place], [address], 06/20/2021 20:08:48 06/13/19 22 06/14/2021 CBC/D IFF AMBIG UOUS DEFAU LT RBC 4.05 x10e6 /uL 3.77-5 .28 Not Available [facility] ([facility]) [address], [place], [address], 06/20/2021 20:08:48 06/13/19 22 06/14/2021 CBC/D IFF AMBIG UOUS DEFAU LT hemoglobin 12.3 g/dL 11.1-1 5.9 Not Available [facility] ([facility]) [address], [place], [address], 06/20/2021 20:08:48 06/13/19 22 06/14/2021 CBC/D IFF AMBIG UOUS DEFAU LT hematocrit 36.5 % 34.0-4 6.6 Not Available [facility] ([facility]) [address], [place], [address], 06/20/2021 20:08:48 06/13/19 22 06/14/2021 CBC/D IFF AMBIG UOUS DEFAU LT MCV 90 fL 79-97 Not Available [facility] ([facility]) [address], [place], [address], 06/20/2021 20:08:48 06/13/19 22 06/14/2021 CBC/D IFF AMBIG UOUS DEFAU LT MCH 30.4 pg 26.6-3 3.0 Not Available [facility] ([facility]) [address] [place], [address], 06/20/2021 20:08:48 06/13/19 22 06/14/2021 CBC/D IFF AMBIG UOUS DEFAU LT MCHC 33.7 g/dL 31.5-3 5.7 Not Available [facility] ([facility]) [address] [place], [address], 06/20/2021 20:08:48 06/13/19 22 06/14/2021 CBC/D IFF AMBIG UOUS DEFAU LT RDW 13.0 % 11.7-1 5.4 Not Available [facility] ([facility]) [address] [facility], [place], [address], 06/20/2021 20:08:48 06/13/19 22 06/14/2021 CBC/D IFF AMBIG UOUS DEFAU LT platelets 191 x10e3 /uL 150-45 0 Not Available [facility] ([facility]) [address] [facility], [place], [address], 06/20/2021 20:08:48 06/13/19 22 06/14/2021 CBC/D IFF AMBIG UOUS DEFAU LT neutrophils 70 % not estab. Not Available [facility] ([facility]) [address] [facility], [place], [address], 06/20/2021 20:08:48 06/13/19 22 06/14/2021 CBC/D IFF AMBIG UOUS DEFAU LT lymphs 22 % not estab. Not Available [facility] ([facility]) [address] [facility], [place], [address], 06/20/2021 20:08:48 06/13/19 22 06/14/2021 CBC/D IFF AMBIG UOUS DEFAU LT monocytes 8 % not estab. Not Available [facility] ([facility]) [address] [facility], [place], [address], 06/20/2021 20:08:48 06/13/19 22 06/14/2021 CBC/D IFF AMBIG UOUS DEFAU LT eos 0 % not estab. Not Available [facility] ([facility]) [address] [facility], [place], [address], 06/20/2021 20:08:48 06/13/19 22 06/14/2021 CBC/D IFF AMBIG UOUS DEFAU LT basos 0 % not estab. Not Available [facility] ([facility]) [address] [facility], [place], [address], 06/20/2021 20:08:48 06/13/19 22 06/14/2021 CBC/D IFF AMBIG UOUS DEFAU LT immature cells nonprofit director Not Available [facility] ([facility]) [address], [place], [address], 06/20/2021 20:08:48 06/13/19 22 06/14/2021 CBC/D IFF AMBIG UOUS DEFAU LT neutrophils (absolute) 3.6 x10e3 /uL 1.4-7. 0 Not Available [facility] ([facility]) [address], [place], [address], 06/20/2021 20:08:48 06/13/19 22 06/14/2021 CBC/D IFF AMBIG UOUS DEFAU LT lymphs (absolute) 1.1 x10e3 /uL 0.7-3. 1 Not Available [facility] ([facility]) [address] [place], [address], 06/20/2021 20:08:48 06/13/19 22 06/14/2021 CBC/D IFF AMBIG UOUS DEFAU LT monocytes(ab solute) 0.4 x10e3 /uL 0.1-0. 9 Not Available [facility] ([facility]) [address] [place], [address], 06/20/2021 20:08:48 06/13/19 22 06/14/2021 CBC/D IFF AMBIG UOUS DEFAU LT eos (absolute) 0.0 x10e3 /uL 0.0-0. 4 Not Available [facility] ([facility]) [address] [place], [address], 06/20/2021 20:08:48 06/13/19 22 06/14/2021 CBC/D IFF AMBIG UOUS DEFAU LT baso (absolute) 0.0 x10e3 /uL 0.0-0. 2 Not Available [facility] ([facility]) [address] [place], [address], 06/20/2021 20:08:48 06/13/19 22 06/14/2021 CBC/D IFF AMBIG UOUS DEFAU LT immature granulocytes 0 % not estab. Not Available [facility] ([facility]) [address] [place], [address], 06/20/2021 20:08:48 06/13/19 22 06/14/2021 CBC/D IFF AMBIG UOUS DEFAU LT immature grans (abs) 0.0 x10e3 /uL 0.0-0. 1 Not Available [facility] ([facility]) [address] [place], [address], 06/20/2021 20:08:48 06/13/19 22 06/14/2021 CBC/D IFF AMBIG UOUS DEFAU LT NRBC nonprofit director Not Available [facility] ([facility]) [address], [place], [address], 06/20/2021 20:08:48 06/13/19 22 06/14/2021 CBC/D IFF AMBIG UOUS DEFAU LT hematology comments: nonprofit director A hand- writt en panel /prof ile was recei lopez from your offic e. In accor dance with the [facility] Ambnic uous Test Code Polic y dated November 2002, we have assig kathie CBC with Diffe vargas al/Pl hank t, Test Code #[address]. If this is not the testi ng you wishe d to recei ve on this speci men, pleas e conta ct the [facility] Clien t Inqui ry/ Techn ical Servi brenden Depar tment to florentin fy the test order . We appre ciate your busin ess. Not Available [facility] ([facility]) [address] [place], [address], 06/20/2021 20:08:48 06/13/19 22 06/14/2021 UA WITH CULTU RE REFLE X specific gravity 1.016 1.005- 1.030 Not Available [facility] ([facility]) [address] [facility], [place], [address], 06/14/2021 14:18:20 06/13/19 22 06/14/2021 UA WITH CULTU RE REFLE X pH 6.5 5.0-7. 5 Not Available [facility] ([facility]) [address] [facility], [place], [address], 06/14/2021 14:18:20 06/13/19 22 06/14/2021 UA WITH CULTU RE REFLE X urine-color yellow yellow Not Available [facility] ([facility]) [address] [facility], [place], [address], 06/14/2021 14:18:20 06/13/19 22 06/14/2021 UA WITH CULTU RE REFLE X appearance clear clear Not Available [facility] ([facility]) [address] [facility], [place], [address], 06/14/2021 14:18:20 06/13/19 22 06/14/2021 UA WITH CULTU RE REFLE X WBC esterase negati ve negati ve Not Available [facility] ([facility]) [address] [facility], [place], [address], 06/14/2021 14:18:20 06/13/19 22 06/14/2021 UA WITH CULTU RE REFLE X protein negati ve negati ve/tra ce Not Available [facility] ([facility]) [address] [facility], [place], [address], 06/14/2021 14:18:20 06/13/19 22 06/14/2021 UA WITH CULTU RE REFLE X glucose negati ve negati ve Not Available [facility] ([facility]) [address] [facility], [place], [address], 06/14/2021 14:18:20 06/13/19 22 06/14/2021 UA WITH CULTU RE REFLE X ketones negati ve negati ve Not Available [facility] ([facility]) [address] [place], [address], 06/14/2021 14:18:20 06/13/19 22 06/14/2021 UA WITH CULTU RE REFLE X occult blood negati ve negati ve Not Available [facility] ([facility]) [address] [facility], [place], [address], 06/14/2021 14:18:20 06/13/19 22 06/14/2021 UA WITH CULTU RE REFLE X bilirubin negati ve negati ve Not Available [facility] ([facility]) [address] [facility], [place], [address], 06/14/2021 14:18:20 06/13/19 22 06/14/2021 UA WITH CULTU RE REFLE X urobilinogen ,semi-qn 0.2 mg/dL 0.2-1. 0 Not Available [facility] ([facility]) [address] [place], [address], 06/14/2021 14:18:20 06/13/19 22 06/14/2021 UA WITH CULTU RE REFLE X nitrite, urine negati ve negati ve Not Available [facility] ([facility]) [address] [facility], [place], [address], 06/14/2021 14:18:20 06/13/19 22 06/14/2021 UA WITH CULTU RE REFLE X microscopic examination commen t Micro scopi c not indic ated and not perfo rmed. Not Available [facility] ([facility]) [address] [facility], [place], [address], 06/14/2021 14:18:20 06/13/19 22 06/14/2021 UA WITH CULTU RE REFLE X urinalysis reflex commen t This speci men will not refle x to a Urine Cultu re. Not Available [facility] ([facility]) [address] [place], [address], 06/14/2021 14:18:20 06/13/19 22 06/14/2021 TSH+F REE T4 TSH 1.290 uIU/m L 0.450- 4.500 Not Available [facility] ([facility]) [address] [place], [address], 06/14/2021 14:18:20 06/13/19 22 06/14/2021 TSH+F REE T4 T4,free(dire ct) 1.37 NG/dL 0.82-1 .77 Not Available [facility] ([facility]) [address] [place], [address], 06/14/2021 14:18:20 06/13/19 22 06/14/2021 FE+TI BC+FE R iron bind.cap.(TI BC) 271 ug/dL 250-45 0 Not Available [facility] ([facility]) [address] [place], [address], 06/14/2021 14:18:19 06/13/19 22 06/14/2021 FE+TI BC+FE R UIBC 154 ug/dL 131-42 5 Not Available [facility] ([facility]) [address] [place], [address], 06/14/2021 14:18:19 06/13/19 22 06/14/2021 FE+TI BC+FE R iron 117 ug/dL 27-159 Not Available [facility] ([facility]) [address] [place], [address], 06/14/2021 14:18:19 06/13/19 22 06/14/2021 FE+TI BC+FE R iron saturation 43 % 15-55 Not Available [facility] ([facility]) [address] [place], [address], 06/14/2021 14:18:19 06/13/19 22 06/14/2021 FE+TI BC+FE R ferritin 17 NG/mL 15-150 Not Available [facility] ([facility]) [address] [facility], [place], [address], 06/14/2021 14:18:19 12/31/19 22 12/30/2021 COLOG UARD cologuard result reportable negati ve negati ve NEGAT PORSCHE TEST RESUL T. A negat porsche Colog uard resul t indic ates a low likel ihood that a color ectal cance r (CRC) or advan saira adeno ma ([place] omato us polyp s with more advan saira pre-m align ant featu res) is prese nt. The chanc e that a perso n with a negat porsche Colog uard test has a color ectal cance r is less than 1 in 1500 (nega tive predi ctive value >99.9 %) or has an advan saira adeno ma is less than 5.3% (nega tive predi ctive value 94.7% ). These data are based on a prosp ectiv e cross -sect ional study of 10,00 0 indiv idual s at [place] ge risk for color ectal cance r who were scree kathie with both Colog uard and colon oscop y. (Alee Russell. et al, N Engl J Med 2014; 370(1 4):12 86-12 97) The susan l value (refe rence range ) for this assay is negat porsche. COLOG UARD RE-SC REENI NG RECOM MENDA TION: Perio dic color ectal cance r scree yolanda is an impor tant part of preve ntive healt hcare for asymp tomat ic indiv idual s at [place] ge risk for color ectal cance r. Follo wing a negat porsche Colog uard resul t, the Ameri can Cance r Socie ty and U.S. Multi -Soci ety Task Force scree yolanda guide lines recom mend a Colog uard re-sc reeni ng inter raul of 3 years . Refer ences : Dede can Cance r Socie ty Guide line for Color ectal Cance r Scree yolanda: https ://lien w.can cer.o rg/ca ncer/ colon -rect al-ca ncer/ detec tion- diagn osis- stagi ng/ac s-rec ommen datio ns.ht ml.; Fredo MITCHELL, Jo dowell CR, Cierra esteban JK, Color ectal Cance r Scree yolanda: Recom menda tions for Physi cians and Patie nts from the [place].S. Multi -Soci ety Task Force on Color ectal Cance r Scree yolanda , Am J Gastr oente rolog y 2017; 112:1 016-1 030. TEST DESCR IPTIO N: Aubrey site algor ithmi c cortes sis of stool DNA-b aspen patel with hemog lobin immun oassa y. Quant itati ve value s of indiv idual bioma rkers are not repor table and are not assoc iated with indiv idual bioma rker resul t refer ence range s. Colog uard is inten ded for color ectal cance r scree yolanda of adult s of eithe r sex, 45 years or older , who are at [facility] for color ectal cance r (CRC) . Colog uard has been appro lopez for use by the [place] FDA. The perfo rmanc e of Colog uard was estab lishe d in a cross secti onal study of [facility] adult s aged 50-84 . Colog uard perfo rmanc e in patie nts ages 45 to 49 years was estim ated by sub-g roup cortes sis of near- age group s. Colon oscop ies perfo rmed for a posit porsche resul t may find as the most clini gay signi shawna orr n: color ectal cance r [4.0% ], advan saira adeno ma (incl uding sessi le helena timoteo polyp s great er than or equal to 1cm diame ter) [20%] or non- advan saira adeno ma [31%] ; or no color ectal neopl yolanda [45%] . These estim ates are deriv ed from a prosp ectiv e cross -sect ional berny guerrero study of , 0 ind[facility]ual [facility] risk for color ectal cance r who were scree kathie with both Colog uard and colon oscop y. (Alee Connolly al, N Engl J Med 2014; 370(1 4):12 86-12 97.) Colog uard may produ ce a false negat porsche or false posit porsche resul t (no color ectal cance r or preca ncero us polyp prese nt at colon oscop y follo w up). A negat porsche Colog uard test resul t does not guara ntee the absen ce of CRC or advan saira adeno ma (pre- cance r). The curre nt Colog uard berny guerrero inter raul is every 3 years . (Amer ican Cance r Socie ty and U.S. Multi -Soci ety Task Force ). Colog uard perfo rmanc e data in a 0 patie nt pivot al study using colon oscop y as the refer ence metho d can be acces sed at the follo wing locat ion: www.e xactl abs.c om/re carole . Addit ional descr iptio n of the Colog uard test proce ss, warni ngs and preca ution s can be found at www.c gennyu mack.c om. Not Available [facility] (Cologuard Orders Only) [address], [place], [address], 01/06/2022 10:13:33 06/28/19 22 06/05/2021 XR, chest , 2 view No observ ation record ed. [id number] Not Available 07/11/2022 08:50:25 09/11/19 23 09/08/2022 MAMMO , berny guerrero, digit al, bilat eral No observ ation record ed. [email or web address] [facility] [address], [place], [address], 01/10/2023 15:56:19 Result Notes None recorded. Problems Name Problem SNOMED Code Status Onset Date Resolution Date Notes Provider Name and Address Organization Details Recorded Time Herpes labialis 5812590 Active 2021 Not Available [facility] 3 08:46:33 Dyspnea 406114015 Active 2021 Not Available [facility] 3 08:46:33 Vitamin D deficiency 01827687 Active 2022 Not Available [facility] 3 08:46:33 Umbilical hernia 320288909 Active 2021 Not Available [facility] 3 08:46:33 Cyst of breast 843296672 Active Not Available [facility] 3 08:46:33 Upper respiratory infection 19101210 Active 2021 Not Available [facility] 3 08:46:33 Hyperlipidemi a 22141131 Active 2021 Not Available [facility] 3 08:46:33 Fatigue 57930075 Active 2021 Not Available [facility] 3 08:46:33 Problem Notes None recorded. Procedures Surgical History Date Name Laterality Status Provider Name and Address Organization Details Recorded Time completed Not Available [place] [address] 07/11/2022 08:43:35 completed Not Available [place] [address] 07/11/2022 08:43:35 Hernia Repair completed Not Available [facility] 07/11/2022 08:43:35 completed Not Available [place] [address] 07/11/2022 08:43:35 Cholecystectomy completed Not Available [facility] 07/11/2022 08:43:35 completed Not Available [place] [address] 07/11/2022 08:43:35 ligation of fallopian tube completed Not Available [facility] 07/11/2022 08:43:35 Hernia Repair completed Not Available [facility] 07/11/2022 08:43:35 Imaging Results None recorded. Procedure Notes None recorded. Medical Equipment None Reported. Allergies Allergen ID Allergen Name Allergen Category Reaction Reaction Severity Criticality Documentation Date Start Date Code Code System Note Provider Name and Address Organization Details Recorded Time Biaxin medicatio n hives Not available Not available 07/11/202216371 9 RxNorm Not Available [facility] 3 08:50:18 Medications Name Sig Start Date Stop Date Status Note LastModified by Organization Details LastModified Time amoxicillin 500 mg capsule TAKE 2 CAPSULES BY MOUTH THREE TIMES DAILY FOR 10 DAYS 06/20 completed Not Available Not Available Not Available atorvastati n 40 mg tablet Take 1 tablet every day by oral route for 90 days. 12/28 completed Not Available Not Available Not Available atorvastati n 20 mg tablet 12/28 completed Not Available Not Available Not Available atorvastati n 10 mg tablet active Not Available Not Available Not Available azithromyci n 250 mg tablet 12/28 completed Not Available Not Available Not Available valacyclovi r 1 gram tablet TAKE 2 TABLETS BY MOUTH EVERY 12 HOURS NEEDED 12/28 completed Not Available Not Available Not Available prednisone 20 mg tablet Take 2 tablets every day by oral route for 5 days. active Not Available Not Available No t Available aspirin 81 mg tablet,mk yed release TAKE 1 TABLET BY MOUTH DAILY active Not Available Not Available No t Available amoxicillin 875 mg tablet TK 1 T PO Q 12 H active Not Available Not Available No t Available ergocalcife rol (vitamin D2) 1,250 mcg (50,000 unit) capsule TAKE 1 CAPSULE BY MOUTH EVERY WEEK DIRECTED active Not Available Not Available No t Available ibuprofen 600 mg tablet TK 1 T PO TID WITH FOOD NEEDED. active Not Available Not Available No t Available cefuroxime axetil 500 mg tablet Take 1 tablet every 12 hours by oral route. 12/28 completed Not Available Not Available Not Available methylpredn isolone 4 mg tablets in a dose pack FOLLOW PACKAGE DIRECTION S 12/18 completed Not Available Not Available Not Available albuterol sulfate HFA 90 mcg/actuati on aerosol inhaler active Not Available Not Available Not Available acyclovir 5 % topical cream APPLY TOPICALLY TO THE AFFECTED AREA FIVE TIMES DAILY NEEDED 12/02 completed Not Available Not Available Not Available Ciprodex 0.3 %-0.1 % ear drops,suspe nsion USE 4 DROPS AEA BID FOR 7 DAYS active Not Available Not Available No t Available Zyrtec 2018 active Not Available Not Available Not Avai lable Vitals Date Recorded Body mass index (BMI) Body height Oxygen saturation Oxygen saturation in Arterial blood by Pulse oximetry Heart rate Body temperature Body weight Systolic blood pressure Diastolic blood pressure Provider Name and Address Organization Details Last Updated DateTime 2 28.2 kg/m2 162.56 cm 98 % 98 % 68 /min 98.1 [degF] 40695.1 5 g 118 mm[Hg] 70 mm[Hg] Not Available [facility] 3 08:45:13 Date Recorded Body mass index (BMI) Body height Oxygen saturation Oxygen saturation in Arterial blood by Pulse oximetry Heart rate Body temperature Body weight Systolic blood pressure Diastolic blood pressure Provider Name and Address Organization Details Last Updated DateTime 1 28.6 kg/m2 162.56 cm 98 % 98 % 80 /min 96.4 [degF] 82001.4 9 g 130 mm[Hg] 80 mm[Hg] Not Available [facility] 3 08:45:13 Date Recorded Body mass index (BMI) Body height Oxygen saturation Oxygen saturation in Arterial blood by Pulse oximetry Heart rate Body temperature Body weight Systolic blood pressure Diastolic blood pressure Provider Name and Address Organization Details Last Updated DateTime 2 28.3 kg/m2 162.56 cm 97 % 97 % 71 /min 96.8 [degF] 93403.7 4 g 118 mm[Hg] 74 mm[Hg] Not Available [facility] 3 08:45:13 Date Recorded Body temperature Body weight Body mass index (BMI) Body height Heart rate Oxygen saturation Oxygen saturation in Arterial blood by Pulse oximetry Systolic blood pressure Diastolic blood pressure Provider Name and Address Organization Details Last Updated DateTime 3 98.3 [degF] 10924.0 3 g 30.7 kg/m2 162.56 cm 72 /min 99 % 99 % 112 mm[Hg] 70 mm[Hg] Jill Jaramillo RN [place] [facility] [facility] 3 17:33:50 Social History Question Answer Notes LastModified by Organizat ion Details LastModified Time Tobacco Smoking Status Never Smoker Not Available [facility] 07/11/2022 08:43:29 What Is Your Level Of Caffeine Consumption? Moderate [id number] Information not available 07/11/2022 How Much Tobacco Do You Chew? None [id number].[id number] 0919 Information not available 07/11/2022 In The 14 Days Before Symptom Onset, Have You Had Close Contact With A Laboratory-confirm ed COVID-19 While That Case Was Ill? No [id number] Information not available 07/11/2022 In The 14 Days Before Symptom Onset, Have You Had Close Contact With A Person Who Is Under Investigation For COVID-19 While That Person Was Ill? No [id number] Information not available 07/11/2022 What Type Of Diet Are You Following? REGULAR [id number].[id number] 0117 Information not available 07/11/2022 Which Illicit Or Recreational Drugs Have You Used? None MIGRATION.[id number] 0570 Information not available 07/11/2022 Have There Been Any Changes To Your Family Or Social Situation? No MIGRATION.822504 3654 Information not available 07/11/2022 Do You Use Insect Repellent Routinely? No MIGRATION.526098 4547 Information not available 07/11/2022 What Was The Date Of Your Most Recent Tobacco Screening? 12/18/2021 [id number].[id number] 1333 Information not available 07/11/2022 What Is Your Relationship Status? MIGRATION.[id number] 5417 Information not available 07/11/2022 Do You Use Your Seat Belt Or Car Seat Routinely? Yes MIGRATION.280234 5700 Information not available 07/11/2022 Do You Have Smoke And Carbon Monoxide Detectors In Your Home? Yes MIGRATION.586021 8181 Information not available 07/11/2022 How Much Tobacco Do You Smoke? No MIGRATION.796013 4927 Information not available 07/11/2022 Do You Use Sunscreen Routinely? Yes MIGRATION.783224 3343 Information not available 07/11/2022 Have You Recently Traveled Abroad? No MIGRATION.733296 3491 Information not available 07/11/2022 Do You Have Any Dietary Restrictions? No MIGRATION.475193 3375 Information not available 07/11/2022 Sex: Unknown Functional Status Question Answer Note LastModified by Organizat ion Details LastModified Time Do you use any illicit or recreational drugs? No MIGRATION.895433 6277 Information not available 07/11/2022 Do you or have you ever used any other forms of tobacco or nicotine? No MIGRATION.361599 7025 Information not available 07/11/2022 What is your level of alcohol consumption? None MIGRATION.330936 0158 Information not available 07/11/2022 Do you or have you ever used smokeless tobacco? Never used smokeless tobacco MIGRATION.892430 0627 Information not available 07/11/2022 Do you or have you ever used e-cigarettes or vape? Never used electronic cigarettes MIGRATION.489413 4989 Information not available 07/11/2022 What is your exercise level? Heavy MIGRATION.097106 6248 Information not available 07/11/2022 Mental Status Question Answer Note LastModified by Organizat ion Details LastModified Time Do you feel stressed (tense, restless, nervous, or anxious, or unable to sleep at night)? [id number] MIGRATION.[id number] 6 Information not available 07/11/2022 Family History Relationship Description Onset Age of this Age Resolved Age Notes LastModified by Organization Details LastModified Time Mother Pulmonary heart disease [id number].[id number] Not available 07/11/2022 08:43:36 Mother Fibrosis of lung MIGRATION.358 [id number] Not available 07/11/2022 08:43:36 Mother Diabetes mellitus MIGRATION.348 [id number] Not available 07/11/2022 08:43:36 Paternal Uncle Fibrosis of lung MIGRATION.931 [id number] Not available 07/11/2022 08:43:37 Maternal Grandmother Pulmonary heart disease MIGRATION.603 [id number] Not available 07/11/2022 08:43:37 Maternal Aunt Multiple sclerosis MIGRATION.080 [id number] Not available 07/11/2022 08:43:37 Medical History No medical history recorded. Gynecological HistoryNo gynecological history recorded. Obstetrics History GPAL:G 0 P 0 0 0 0 Past Encounters Encounter ID Performer Location Encounter Start Date Encounter Closed Date Diagnosis/Indication Diagnosis SNOMED-CT Code Diagnosis ICD10 Code Diagnosis Note [id number] PHILL Bolaños [facility] [place] [address] [place] [address] 12/02/2020 00:00:00 12/04/2020 14:40:15 [id number] PHILL Bolaños [facility] [place] [address] [place] [address] 06/20/2021 00:00:00 07/10/2021 18:50:55 [id number] Akbar Boston MD [facility] Internal [facility] [place] [address] [place] [address] 12/18/2021 00:00:00 01/10/2022 20:51:15 [id number] PHILL Bolaños [facility] Internal [facility] [place] [address] [place] [address] 12/31/2022 17:26:37 12/31/2022 18:08:47 Adult health examination 624548623 Z00.00 well exam completed. labs ordered for may 2023. Hyperlipidemia 33057927 E78.5 stable on atorvastat in 10mg daily. Vitamin D deficiency 347 77265 E55.9 on high dose Rx weekly. repeat lab in may 2023 Long-term drug therapy 228829767 Z79.899 CBC, CMP, TFTs and B12, folate due in may Diabetes m ellitus screening 940443273 Z13.1 screening a1c for may Health Concerns Section Related Observation LastModified by Organization Detai ls LastModified Time None Recorded Concern Status LastModified by Organization Details LastModified Time None Recorded Advance Directives Directive None Recorded Payers Insurance Date Sequence Insurance Name Policy Number Policy Angel Covered Member ID Angel Member ID Guarantor Name 01/10/2023 1 [facility] (O) [id number] Demetria Ornelas [id number] Demetria Ornelas Notes Date Note Type Note Provider Name and Address Organization Details Recorded Time 1 text/html Generic HPI TemplateReported bypatient.Notes:Pt is here today for her wellness exam, doing fine, no complaints except umbilical hernia becoming a bit more discomfort. Not Available [facility] 12/04/2020 14:40:15 2 text/html Generic HPI TemplateReported bypatient.Notes:Pt is here today for f/u from ER visit. see records. she has seen cardiology also. she was SOB with some C/P. Not Available [facility] 07/10/2021 18:50:55 2 text/html HyperlipidemiaReported bypatient.Duration:chronic Control:usually well controlled Compliance:noncompliant with diet;does not exercise Not Available [facility] 01/10/2022 20:51:15 3 text/html HyperlipidemiaReported bypatient.Control:usually well controlled; improving; at goal Compliance:compliant; compliant with diet; exercises Complications:no coronary artery disease; no peripheral artery disease; no cardiovascular disease wellness PHILL Bolaños [address] [facility], [place] [address], [place], [address], [facility] 01/10/2023 15:57:53 OBGyn Episode No OBEpisode recorded.
--- OUTSIDE RECORDS SUMMARY | 2024-11-10 10:39 | XMS_ITS | Encounter Summary ---
Author Organization [facility] System Address [address] [place] [address] Care Team Providers Care Traffic Observer Name Role Phone Julia Cope Primary Care Provider [phone] Encounter Details Date Type Department Care Team (Late Contact Info) Description 08/25/2021 Astrid Message Enc [facility], [address] [place] [address] Farooq, [facility] Provider lab results Social History Tobacco Use Types Packs/Day Years [...] Sexual Orientation Straight 06/09/2021 9: 56 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 No / Unsure 08/24/2021 1:22 PM CDT documented as of this encounter Plan of Treatment Upcoming Encounters Date Type Department Care Team (Late Contact Info) Description 03/15/2025 2:30 PM RADON INSPECTOR Office Visit [facility] [id number] [place] [address] Hung Gray MD [facility] [place] [address] documented as of this encounter Visit Diagnoses Not on filedocumented in this encounter Care Teams Traffic Observer Relationship Specialty Start Date End Date Julia Cope PA PCP - General PHYSICIAN OPTICAL LAB TECHNICIAN 06/05/21 documented as of this encounter
--- OUTSIDE RECORDS SUMMARY | 2024-11-10 10:39 | XMS_ITS | Encounter Summary ---
Author Organization [facility] Address [facility] [place] [address] Care Team Providers Care Mobile Phone Salesperson Name Role Phone Julia Cope Primary Care Provider [phone] Encounter Details Date Type Department Care Team (Late Contact Info) Description 11/07/2022 P[employer]R Lab[employer]ak Message Enc [facility], [address] [place], [place] [id number] Hung Gray MD [facility] [address] [place], [place] [phone] bp results Social History Tobacco Use Types Packs/Day [...] Sexual Orientation Straight 06/09/2021 9: 56 AM PERFECT BINDER 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 If not at goal would then start losartan. documented in this encounter Plan of Treatment Upcoming Encounters Date Type Department Care Team (Late Contact Info) Description 03/15/2025 2:30 PM PERFECT BINDER FEEDER OFFBEARER Office Visit [facility] [address] [place] [address] Hung rGay MD [facility], [address] [place] [address] documented as of this encounter Visit Diagnoses Not on filedocumented in this encounter Care Teams Mobile Phone Salesperson Relationship Specialty Start Date End Date Julia Cope PA PCP - General PHYSICIAN SUPERINTENDENT OF GENERATION 06/05/21 documented as of this encounter
--- OUTSIDE RECORDS SUMMARY | 2024-11-10 10:39 | XMS_ITS | Clinical Summary ---
Author Organization [address] Address [address] [place] [address] Care Team Providers Care Globe Tester Name Role Phone Julia Cope Sigrid POLLOCK Primary Care Pr ovider Allergies Active Allergy Reactions Criticality Noted Date [...] Date Diagnosed Date Mass of breast 07/13/2010 Encounters Date Type Department Care Team Description 08/17/2024 3:45 PM CDT Office Visit [facility] at [address] [place] [address] Akbar Gomes DO Adhesive capsulitis of right shoulder (Primary Dx); Chronic right shoulder pain from Last 3 Months Medical History Medical History Date Comments Hx Other Medical 1979 hernia Hx Other Medical 1999 c- section Hx Other Medical gall bladder Hx Other Medical 1997 knee; Lateralit y: right Social History Tobacco Use Types Packs/Day Years [...] on file Legal Sex Female 3:10 AM PRIVATE PILOT Gender Identity Not on file Sexual Orientation Not on file Obstetrics History Last Filed Vital Signs Vital Sign Reading [...] 08/17/2024 4:02 PM CDT Plan of Treatment Health Maintenance Due Date Last Done Comments Breast Cancer Screening-Mammogram 1973 Cervical Cancer Screening 1973 Colon Cancer Screening-Colonoscopy 1973 Depression Screening 1973 Hepatitis C Screening 1973 DTaP/Tdap/Td Vaccine (1 - Tdap) 1984 Hepatitis B Screening 09/17/1991 Regular Well Visit/Exam 18-64 09/17/1991 Zoster Vaccine (1 of 2) 09/17/2023 Influenza Vaccine (Season Ended) 2025 Pneumococcal vaccine <65 Aged Out No longer eligible based on patient's age to complete this topic Insurance [facility] Care Teams Globe Tester Relationship Specialty Start Date End Date Julia Cope PA [address] [place] [address] PCP - General Physician Warrant Server 04/17/24
== END 2024-11-10 10:27 | disposition home or self-care (01) ==
PROVIDERS: PCP Physician Assistant; Visit Provider Obstetrics & Gynecology
DX: R92.8 Other abnormal and inconclusive findings on diagnostic imaging of breast (principal); N63.10 Unspecified lump in the right breast, unspecified quadrant
CPT/HCPCS: 76642; 77061; 77065; G0279

== ENCOUNTER 2025-05-02 08:10 | Emergency (ER) | payer BC, SELFPAY ==
--- NOTE | 2025-05-02 08:18 | ED.URI ---
HPI - URI/Sore Throat General Chief Complaint: Upper Respiratory Infection Stated Complaint: Sore Throat Time Seen by Provider: 05/02/25 08:10 Source: patient Mode of arrival: ambulatory Limitations: no limitations History of Present Illness HPI Narrative: Patient is a 49-year-old female who presents with congestion, sinus pressure and sore throat. Patient reports the congestion started 4 days ago in the sore throat started 2 days ago. Patient is a teacher. Does take Zyrtec and Flonase daily. Denies any fever, chills, nausea, vomiting, diarrhea. Related Data Home Medications ?Medication ?Instructions ?Recorded ?Confirmed ?Last Taken ?Type cetirizine 10 mg capsule (Zyrtec) 10 mg PO DAILY PRN 08/10/21 10/14/24 Unknown History valacyclovir 1 gram tablet 1,000 mg PO Q12H 08/10/21 10/14/24 Unknown History fluticasone propionate 50 1 spray intranasal DAILY 10/09/23 10/14/24 Unknown History mcg/actuation nasal spray,suspension (Flonase Allergy Relief) Allergies Allergy/AdvReac Type Severity Reaction Status Date / Time clarithromycin Allergy Unknown HIVES Verified 10/14/24 10:05 Review of Systems Review of Systems: All systems reviewed & are unremarkable except as noted in HPI and below Constitutional: Constitutional: Denies chills, Denies fatigue, Denies fever(s), Denies headache(s), Denies malaise and Denies weakness Eyes: Eyes: Denies blurry vision, Denies itchy eyes and Denies loss of vision ENT: Denies otalgia, Denies headache(s), Reports nasal congestion, Denies sinus pain and Denies sore throat Cardiovascular: Cardiovascular: Denies chest pain, Denies irregular heart rhythm and Denies dyspnea Respiratory: Respiratory: Reports cough and Denies dyspnea Gastrointestinal: Gastrointestinal: Denies abdominal pain, Denies diarrhea, Denies nausea and Denies vomiting Musculoskeletal: Musculoskeletal: Denies back pain, Denies myalgias and Denies arthralgias Integumentary/Breasts: Skin/Breast: Denies pruritus and Denies rash Neurologic: Denies headache(s), Denies loss of vision and Denies weakness Psychiatric: Psychiatric: Reports no additional psychiatric complaints Endocrine: Endocrine: Denies fatigue Allergic/Immunologic: Allergic/Immunologic: Denies itchy eyes PMFSH Past Medical History Medical History Breast mass, right Vitamin D deficiency Hyperlipidemia Aortic aneurysm (05/13/21) Screening mammogram, encounter for Breast cyst 2010 Surgical History Surgical History History of cholecystectomy 11/11/19 History of umbilical hernia repair 2007 History of tubal ligation 2009 History of x4 History of inguinal hernia repair 1980 Family History Family History Grandparent Diabetes mellitus maternal grandmother Cerebrovascular accident maternal grandmother Heart disease maternal grandmother Mother Hypertension Diabetes mellitus Heart disease H/O blood clots, Onset Age: 75 Other Breast cancer paternal aunt x 2 Social History Social History Smoking status: Never smoker Second hand tobacco smoke exposure: No Alcohol intake: never Substance use: never Substance use type: does not use Lack of Transportation: No Lack of Food: Never True Current Housing: I Have Housing Concerned About Future Housing: No Difficulty Paying Gas/Electric Bills: No Difficulty Paying for Meds: No Currently Unemployed: No Education: Bachelor's Degree Difficulty w/ Childcare or Family Care: No Living arrangements: with family Additional living arrangements comments: Occupation/Education: occupation Additional occupation/education comments: Teacher Gender identity (if verbalized by the patient): Female Sexual Orientation (if Verbalized by the Patient): Straight or Heterosexual Comments At time of signature, agree with nursing past medical, surgical, social and family history. There is no relevant family history pertinent to the presenting complaint. Exam Const: General: cooperative, healthy appearing, comfortable, no acute distress and well nourished Nutritional Appearance: well nourished Orientation/consciousness: patient oriented x3 Limitations: no limitations HENMT: Head: normal to inspection, normocephalic and atraumatic Ears: hearing grossly normal bilaterally, external ears normal, TM's normal bilaterally, EAC's normal and no periauricular adenopathy Face/Nose/Sinus: Normal external nose present, Abnormal mucous membranes and turbinates present erythematous bilateral and diffuse, normal facial exam, sinuses nontender and face symmetric Face and sinus: normal facial exam, sinuses nontender and face symmetric Mouth: Yes Normal oral and palatal mucosa present, Yes lip normal, Yes tongue normal, Yes Normal salivary glands and ducts present, Yes oropharynx normal and Yes moist mucous membranes Teeth and gingiva: dentition normal Throat: posterior oropharynx normal, tonsils normal, uvula midline and postnasal drainage Eyes: General: appearance normal, both eyes and all related structures Alignment and Position: alignment normal and position normal Periorbital: periorbital findings normal Eyelids: eyelids normal Pupils: Equal, round and reactive pupils present Neck: Neck: normal visual inspection, full ROM, no lymphadenopathy and supple Chest: Chest palpation & inspection: normal inspection of the chest and normal palpation of entire chest wall Resp: Effort & Inspection: normal respiratory effort and able to speak in complete sentences Auscultation: clear to auscultation bilaterally, no crackles, no rales, no rhonchi and no wheezes Cardio: Rate: regular rate Rhythm: regular rhythm Heart sounds: S1 normal heart sound present and S2 normal heart sound present GI: Inspection: normal to inspection Skin: General skin exam: normal color and no rashes or lesions noted Neuro: General: patient oriented x3 and moves all extremities Cranial nerves: Yes Equal, round and reactive pupils present Speech: normal speech Gait exam (Neuro): Normal gait present Extrem: General: normal to inspection, full ROM and no edema Psych: Appearance: grossly normal and well kempt Mental Status: mental status grossly normal Speech and movement: Normal speech and movement present Affect: normal affect Attitude: cooperative Thought process: Normal thought process present Course Course Emergency Course: Patient is aware of diagnosis, understands and agrees to treatment plan. Anticipatory guidance given. Patient agrees to follow-up as directed and is aware of reasons to seek care at the emergency department. Portions of this record may have been created with voice recognition software Level of Care: Express Care Visit Vital Signs Vital signs: Vital Signs Temperature 37.2 C 05/02/25 08:22 Pulse Rate 81 05/02/25 08:22 Respiratory Rate 16 05/02/25 08:22 Blood Pressure 132/79 05/02/25 08:22 Pulse Oximetry 100 05/02/25 08:22 Temperature 37.2 C 05/02/25 08:22 Pulse Rate 81 05/02/25 08:22 Respiratory Rate 16 05/02/25 08:22 Blood Pressure 132/79 05/02/25 08:22 Pulse Oximetry 100 05/02/25 08:22 [facility] MDM Narrative Medical decision making narrative: Rapid strep was negative. A throat culture is pending. Symptoms likely viral in etiology. Pt well hydrated appearing, in no respiratory distress, hemodynamically stable. Recommend supportive care. The patient is stable at time of discharge the clinical impression was discussed and the patient was given the opportunity to ask questions, which were addressed as completely as possible given the information available at present. Anticipatory guidance and return to care precautions were discussed and the importance of primary care follow-up was stressed and encouraged. The patient voiced understanding of the plan, indications to return, and the need for follow-up. Exam findings show no acute concerns or changes Patient is appropriate for outpatient treatment and follow-up. Differential Diagnosis Differential Diagnosis: Differential diagnosis considered: Champion virus, strep pharyngitis, allergic rhinitis, upper respiratory tract infection, sinusitis, rhinosinusitis, nasopharyngitis. viral pharyngitis, otitis media, otitis externa, otitis effusion, foreign body, cerumen impaction, viral syndrome, and influenza. Medical Records I have reviewed the following patient records and this information was taken into consideration when formulating the assessment and plan.: previous clinic visits Lab Data [facility] Lab Attestation statement: I personally reviewed the patient's lab results. Labs: Lab Results 05/02/25 Range/Units 08:34 POC Grp A Strep Screen Negative (Negative) Discharge Plan Discharge Clinical Impression: Upper respiratory infection Qualifiers: URI type: acute nasopharyngitis (common cold) Qualified Code(s): J00 - Acute nasopharyngitis [common cold] Patient Disposition: Home Condition: Stable Instructions: Upper Respiratory Infection (ED) Additional Instructions: Your rapid strep swab was negative today at [facility]. A throat culture will be sent to the laboratory for further testing. If the test is positive, you will receive a phone call within 48 hours and an appropriate antibiotic will be initiated at that time. Your symptoms are likely due to a viral illness, which is not treated with antibiotics. Viral symptoms can be present for up to a few weeks. -For pain/fever, you may take: Tylenol 650-1000mg by mouth every 4-6 hours. Do not exceed 4000mg in 24 hours. Advil (Ibuprofen) 600 mg by mouth every 6 hours. Do not exceed 2400mg in 24 hours. 8 AM: Tylenol 11 AM: Ibuprofen 2 PM: Tylenol 5 PM: Ibuprofen 8 PM: Tylenol 11 PM: Ibuprofen 2 AM: Tylenol 5 AM: Ibuprofen -Antihistamine medication such as Benadryl/Zyrtec at night and Claritin/Mary during the day can help improve symptoms. -Use Flonase twice a day for 5 days then daily to help reduce the inflammation and dry up your sinuses. -You can also use Sudafed behind the pharmacy counter(12 or 24 hour). Be sure to drink plenty of water with these medications at least 8 ounces with every dose and it is important to drink 8 to 10 glasses of water per day. Water is a natural decongestant -Eat and drink things that are easy to swallow, like tea or soup, or popsicles. -Oral rinses such as: Salt water gargles and/or may use topical anesthetic (eg. Chloraseptic spray) or lozenges to relieve dryness or throat pain). -Frequent hand washing or hand chummer is one of the best ways to prevent spread of infection. -Using a vaporizer or humidifier at night will also help thin secretions and help with coughing up phlegm. Call your Primary Care Doctor and make a follow-up appointment in 3 days. If your cough worsens, you develop a fever greater than 103, you develop shaking chills, a fast heartbeat, trouble breathing and/or feel you are are breathing much faster than usual, call your Primary Care Doctor or go to the ER. Patient Language: [place]er Prescriptions: New methylprednisolone [Medrol (Ronaldo)] 4 mg tablets,dose pack See Rx Instructions .ROUTE .COMPLEX Qty: 21 0RF Rx Instructions: orally per package directions No Action Zyrtec 10 mg capsule 10 mg PO DAILY PRN valacyclovir 1 gram tablet 1,000 mg PO Q12H fluticasone propionate [Flonase Allergy Relief] 50 mcg/actuation spray,suspension 1 spray intranasal DAILY Rx Instructions: administer into each nostril Follow-up/Referrals: Prisca,MAHI Dumont [Primary Care Provider, Unknown] - 3 Days Time of Disposition: 08:38
[2025-05-02 08:22] VITALS: BP 132/79; PULSE 81; RESP 16; TEMP 37.2; O2SAT 100
[2025-05-02 08:36] LABS: EDSTREPNEGPOS1 Negative (Negative)
== END 2025-05-02 08:40 | disposition home or self-care (01) ==
PROVIDERS: Emergency Provider Nurse Practitioner Family; PCP Physician Assistant
DX: J00 Acute nasopharyngitis [common cold] (principal); E78.5 Hyperlipidemia, unspecified
CPT/HCPCS: 87081; 87880; 99213; G0463